=== PATIENT | male | born 1990 | race Caucasian/White ===

== ENCOUNTER 2020-03-03 12:15 | Day surgery (SDC) | payer BC ==
[~2020-03-03] VITALS: Ht 182.9 cm; Wt 112.4 kg
[2020-03-03] MEDS ORDERED: OMEP20ER PO (13:10)
--- NOTE | 2020-03-03 13:29 | NUR ---
Ambulatory in Day Surgery History, Chart, Medications and Allergies reviewed before start of procedure.Patient confirms NPO status and agrees with scheduled surgery. Lungs clear T/O to Auscultation.
--- NOTE | 2020-03-03 14:30 | NUR ---
03/03/20 1430 Martha Yates History, Chart, Medications and Allergies reviewed before start of procedure.PATIENT DETERMINED TO BE ASA APPROPRIATE FOR PROPOFOL SEDATION PRIOR TO START OF PROCEDURE BY .MONITOR INTACT WITH CONTINUOUS PULSE OXIMETRY AND INTERMITTENT BP.3-LEAD EKG REVIEWED WITH PHYSICIAN PRIOR TO START OF PROCEDURE.O2 VIA N/C INTACT THROUGHOUT SEDATION/PROCEDURE.
--- NOTE | 2020-03-03 14:51 | NUR ---
Patient up to Ambulate independently. Gait steady. Discharge instructions reviewed with patient. Patient verbalizes understanding. Copy given to patient to take home. Patient States Post-Procedure ride home has been arranged. Discharged via wheelchair to private car for ride home.
== END 2020-03-03 14:51 | disposition home or self-care (01) ==
LOC: ORSCMMR 12:15 → ORD 13:00 → ORSCMMR 14:15
PROVIDERS: Internal Medicine Gastroenterology
PROC: 0D757ZZ Dilation of Esophagus, Via Natural or Artificial Opening (ICD-10-PCS; principal; 2020-03-03 14:15)
PROC: 0DB98ZX Excision of Duodenum, Via Natural or Artificial Opening Endoscopic, Diagnostic (ICD-10-PCS; principal; 2020-03-03 14:15)
DX: R13.10 Dysphagia, unspecified (principal); K21.9 Gastro-esophageal reflux disease without esophagitis; K29.80 Duodenitis without bleeding
CPT/HCPCS: 88305; 88342; J2704; J7120

== ENCOUNTER → 2023-01-22 | Outpatient (CLI) | payer BC ==
[~2023-01-22] MED LIST: OMEP20ER PO
== END ==
LOC: PLD 07:43 → LAB SHORT 07:43
DX: R23.4 Changes in skin texture (principal); R21 Rash and other nonspecific skin eruption
CPT/HCPCS: 88312